=== PATIENT | male | born 1960 | race African-American/Black ===

== ENCOUNTER 2017-04-24 11:08 | Emergency (ER) | payer BC, OTHER ==
[2017-04-24] MEDS ORDERED: KETOROLAC 30 MG INJ IM (14:02)
== END 2017-04-24 16:15 | disposition left against medical advice (07) ==
LOC: FTE 16:15
DX: M25.551 Pain in right hip (principal); F17.210 Nicotine dependence, cigarettes, uncomplicated
CPT/HCPCS: 99282